=== PATIENT | male | born 1960 | race Caucasian/White ===

== ENCOUNTER 2019-06-04 06:22 | Day surgery (SDC) | payer BC ==
[2019-06-04] MEDS ORDERED: Lactated Ringers 1,000 ML IV SCH (07:00)
[2019-06-04] MEDS ORDERED: fentaNYL 100 MCG/2 ML SDV ONE (07:17)
[2019-06-04] MEDS ORDERED: Propofol 200 MG/20 ML SDV ONE (07:17)
[2019-06-04] MEDS ORDERED: Midazolam 1 MG/ML 2 ML SDV ONE (07:17)
--- NOTE | 2019-06-04 10:55 | OR ---
DATE OF PROCEDURE: 06/04/2019 PREOPERATIVE DIAGNOSIS: Positive Cologuard. POSTOPERATIVE DIAGNOSIS: Positive Cologuard, transverse colon polyp. PROCEDURE PERFORMED: Colonoscopy to the cecum with snare cautery polypectomy. SURGEON: Arnold Mcduffie MD ANESTHESIA: IV anesthesia with monitored anesthesia care. INDICATION: This 59-year-old white male is referred for a colonoscopy. He had a positive Cologuard. He says his last colonoscopic exam was done about 10 years ago. I counseled him for the procedure including risks and alternatives, and he gave his informed consent to proceed. DESCRIPTION OF PROCEDURE: The patient was placed in the left lateral decubitus position. IV anesthesia was administered by the Anesthesia Service. Time-out was held. A rectal exam was performed, which was unremarkable. The flexible video Olympus colonoscope was introduced through his anus, up his rectum, and out his colon all way to the cecum. En route, in the transverse colon, we saw a medium-sized polyp. We biopsied this to make sure we had specimen. A snare was passed about its base. It was elevated up away from the bowel wall and amputated as electrocautery was applied. The polyp was aspirated up through the scope and captured in a polyp trap. Once the cecum was reached, the scope was slowly withdrawn examining the mucosa throughout. No additional mucosal abnormalities were noted. The scope was retroflexed in the rectum with the distal rectum appearing unremarkable. The scope was straightened and removed. He tolerated the procedure well. Arnold Mcduffie MD /[id number]
== END 2019-06-04 09:30 | disposition home or self-care (01) ==
LOC: JP.SDS 06:22
PROVIDERS: ATTEND Surgery
DX: D12.3 Benign neoplasm of transverse colon (principal); E11.9 Type 2 diabetes mellitus without complications; E78.00 Pure hypercholesterolemia, unspecified; K21.9 Gastro-esophageal reflux disease without esophagitis; F32.9 Major depressive disorder, single episode, unspecified; F90.9 Attention-deficit hyperactivity disorder, unspecified type; G47.33 Obstructive sleep apnea (adult) (pediatric)
CPT/HCPCS: 45385; J2250; J2704; J3010; J7120; 88305